=== PATIENT | female | born 1990 | race Caucasian/White ===

== ENCOUNTER 2018-11-04 14:26 | Inpatient (IN) | payer BC ==
[~2018-11-04] VITALS: Ht 170.2 cm; Wt 86.2 kg
--- NOTE | 2018-11-04 14:40 | NUR ---
MID UPPER ABD PAIN, + NAUSEA - DIARRHEA. AA/OX4, CHANGED INTO GOWN, ATTACHED TO THE MONITOR. IV LINE ESTABLISHED. NO DISTRESS NOTED.
[2018-11-04] MEDS ORDERED: PANTOPRAZOLE 40 MG VIAL ONE (14:57)
[2018-11-04] MEDS ORDERED: ONDANSETRON HCL/PF 4 MG/2 ML VIAL ONE (14:57)
[2018-11-04] MEDS ORDERED: MORPHINE SULFATE INJ 4 MG/ML DISP.SYRIN ONE ×2 (14:57→15:52)
[2018-11-04] MEDS ORDERED: PANTOPRAZOLE 40 MG VIAL IV ONE (15:00)
[2018-11-04] MEDS ORDERED: ONDANSETRON HCL/PF 4 MG/2 ML VIAL IVP ONE (15:00)
[2018-11-04] MEDS ORDERED: IV NS 0.9% 500 ML BAG IV ONE (15:00)
[2018-11-04 15:05] LABS: APPEARANCE,URINE Slightly Cloudy (CLEAR); BILIRUBIN,URINE Negative (NEGATIVE); BLOOD, URINE Negative Ery/uL (NEGATIVE); COLOR,URINE Yellow (YELLOW); KETONES,URINE Negative (NEGATIVE); LEUKOCYTE ESTERASE ,URINE Trace (NEGATIVE); NITRITE, URINE Negative (NEGATIVE); PROTEIN,URINE Negative (NEGATIVE); UGLUCOSE Negative (NEGATIVE); UROBILINOGEN,URINE 0.2 EU/dL (0.2)
[2018-11-04 15:08] LABS: BASOPHILS % (AUTO) 0.3 % (0.0-2.0); EOSINOPHILS % (AUTO) 0.8 % (0.0-6.0); HEMATOCRIT 40 % (33-45); HEMOGLOBIN 13.9 g/dL (11.5-14.8); LYMPHOCYTES # (AUTO) 1.2 /CMM (0.8-4.8); LYMPHOCYTES % (AUTO) 11.8 % (20.0-44.0); MEAN CORPUSCULAR HGB CONC 35 g/dl (31.0-36.0); MEAN CORPUSCULAR VOLUME 88 fL (82-100); MONOCYTES # (AUTO) 0.4 /CMM (0.1-1.30); MONOCYTES % (AUTO) 4.4 % (2.0-12.0); NEUTROPHILS # (AUTO) 8.4 /CMM (1.8-8.9); NEUTROPHILS % (AUTO) 82.7 % (43.0-81.0); PLATELET COUNT (AUTO) 309 /CMM (150-450); RED BLOOD CELL COUNT(AUTO) 4.54 MIL/uL (4.0-5.2); WHITE BLOOD COUNT (AUTO) 10.2 K/uL (4.3-11.0)
[2018-11-04 15:12] LABS: BACTERIA,URINE 2+ /HPF (None Seen); RBC,URINE 0-2 /HPF (0-2); SQUAMOUS EPITHELIAL CELL,UR Few /HPF (None Seen)
[2018-11-04 15:15] LABS: CALCIUM, SERUM 9.9 mg/dL (8.5-10.1); CARBON DIOXIDE 27 mmol/L (21-32); CHLORIDE 102 mmol/L (98-107); CREATININE 0.9 mg/dL (0.6-1.3); GLUCOSE 104 mg/dL (74-106); POTASSIUM 4.1 mmol/L (3.5-5.1); SODIUM SERUM 138 mmol/L (136-145); UREA NITROGEN, BLOOD 9 mg/dL (7-18)
--- NOTE | 2018-11-04 15:16 | NUR ---
PATIENT REFUSES MORPHINE AT THIS TIME, PER PATIENT PATIENT IS TOLERABLE. DR. RG MADE AWARE.
[2018-11-04] MEDS: MORPHINE SULFATE INJ 2 MG/ML DISP.SYRIN IV ONE ×2 (15:19→15:56)
[2018-11-04 15:22] LABS: ALANINE AMINOTRANSFERASE 31 U/L (12-78); ALBUMIN 4.3 g/dL (3.4-5.0); ALKALINE PHOSPHATASE 59 U/L (46-116); ASPARTATE AMINOTRANSFERASE 21 U/L (15-37); BILIRUBIN,DIRECT 0.2 mg/dL (0.0-0.2); BILIRUBIN,TOTAL 0.6 mg/dL (0.2-1.0); LIPASE 107 U/L (73-393); TOTAL PROTEIN, SERUM 7.5 g/dL (6.4-8.2)
[2018-11-04] MEDS ORDERED: IOHEXOL-300 100 ML VIAL IV ONE (15:54)
[2018-11-04] MEDS ORDERED: IV NS 0.9% 250 ML IV ONE (15:54)
[2018-11-04] MEDS ORDERED: CT SWABBABLE VALVE TRANS SET 1 EA INFUS.SET MC ONE (15:54)
--- NOTE | 2018-11-04 16:00 | NUR ---
PATIENT CHANGED HER MIND, REQUESTING FOR THE MORPHINE 4MG FOR PAIN.
--- NOTE | 2018-11-04 16:38 | NUR ---
CALLED DR MENG FOR A DR TO LEFT MESSAGE AND AWAITING HIS CALL BACK
[2018-11-04] MEDS ORDERED: PIPERACILLIN /TAZOBACTAM 3.375 G in IV D5W 50 ML IV ONE (17:00)
--- NOTE | 2018-11-04 17:03 | NUR ---
CALLED DR MENG AND LEFT A MESSAGE. AWAITING HIS CALL BACK
[2018-11-04] MEDS ORDERED: ESCI10TA PO (17:08)
[2018-11-04] MEDS ORDERED: MAGN400T26 PO (17:08)
[2018-11-04] MEDS ORDERED: FERR325T23 PO (17:08)
[2018-11-04] MEDS ORDERED: BUPR-51 PO (17:08)
--- NOTE | 2018-11-04 17:40 | NUR ---
CALLED [employer]. DIRECTOR PRISON DR HORNER.
--- NOTE | 2018-11-04 17:56 | NUR ---
CALLED HOUSE SUP FOR FOLLOW UP FOR MS BED
--- NOTE | 2018-11-04 18:02 | NUR ---
BED ASSIGN TO ROOM 307-1
--- NOTE | 2018-11-04 18:13 | NUR ---
REPORT GIVEN TO BELLE JOHNSON FOR SAUNDRA.
[2018-11-04 18:40] VITALS: BP 125/71
--- NOTE | 2018-11-04 18:48 | NUR ---
PATIENT MOVED TO ROOM 307-1, IN STABLE CONDITION. PATIENT KEPT NPO.
--- NOTE | 2018-11-04 18:54 | NUR ---
MS RN ADMITTING NOTES RECEIVED PATIENT FROM ER VIA [facility] ACCOMPANIED BY ER STAFF @9930. ALERT AND ORIENTED X 4; VERBALLY RESPONSIVE AND ABLE TO FOLLOW DIRECTIONS. BREATHING REGULAR AND UNLABORED. IV LINE LEFT AC G18 PATENT AND INTACT, FLUSHES WELL. VITAL SIGNS TAKEN. MD MADE AWARE OF ADMISSION. PLACED ON SEMI FOWLERS POSITION. NO COMPLAINTS OF PAIN/DISCOMFORT OF THE TIME. CALL LIGHT IN REACH. NEEDS ATTENDED. WILL ENDORSE TO NOC SHIFT FOR CONTINUITY OF CARE.
[2018-11-04] MEDS ORDERED: MAG HYDROX/AL HYDROX/SIMETH 30 ML UDC PO PRN (19:00)
[2018-11-04] MEDS ORDERED: ONDANSETRON HCL/PF 4 MG/2 ML VIAL IVP PRN (19:00)
[2018-11-04] MEDS ORDERED: MAGNESIUM HYDROXIDE 30 ML UDC PO PRN (19:00)
[2018-11-04] MEDS ORDERED: MORPHINE SULFATE INJ 2 MG/ML DISP.SYRIN IV PRN (19:00)
[2018-11-04] MEDS: IV NS 0.9% 1,000 ML IV PRN (19:00)
[2018-11-04] MEDS ORDERED: Z GUARD REMEDY 2 OZ OINT TP PRN (19:00)
--- NOTE | 2018-11-04 19:11 | NUR ---
MS RN NOTES SPOKE WITH WITH ORDERS TO PUT PATIENT ON CLEAR LIQUIDS DIET THEN NPO AFTER MIDNIGHT AND GET A CONSENT FOR LAPAROSCOPIC APPENDECTOMY POSSIBLE OPEN. ENDORSED ACCORDINGLY TO NOC SHIFT.
--- NOTE | 2018-11-04 19:50 | NUR ---
MS RN NOTES RECEIVED PATIENT LYING IN BED, AWAKE ALERT ORIENTED X4, NO SIGNS OF ACUTE RESPIRATORY DISTRESS NOTED, INITIAL PHYSICAL ASSESSMENT AND ADMISSION QUESTIONNAIRES INITIATED, STATED 2/10 LEVEL OF MID / LOWER ABDOMINAL PAIN, TOLERABLE AT THIS TIME, ALL NEEDS ANTICIPATED, CALL LIGHT WITH IN EASY REACH, SAFETY MEASURES IN PLACE, IV ACCESS ON HER LEFT AC INTACT AND PATENT, ORIENTED TO ROOM, UNIT AND THE USE OF CALL LIGHT, WILL CONTINUE TO MONITOR ACCORDINGLY.
[2018-11-04 20:00] VITALS: BP 129/65
[2018-11-04 20:09] VITALS: BP 129/65
--- NOTE | 2018-11-04 22:06 | NUR ---
RN NOTES PATIENT COMPLAINT OF SEVERE ABDOMINAL PAIN, 11/01, MORPHINE 2MG IV GIVEN PRN ORDER, WILL MONITOR.
[2018-11-04] MEDS: PIPERACILLIN /TAZOBACTAM 3.375 G in IV D5W 100 ML IV SCH (23:02)
--- NOTE | 2018-11-04 23:02 | NUR ---
RN NOTES PATIENT VOMITED CLEAR LIQUID SECRETION, ZOFRAN GIVEN ORDERED. WILL MONITOR.
[2018-11-05] MEDS ORDERED: PIPERACILLIN /TAZOBACTAM 3.375 G in IV D5W 50 ML IV SCH ×2
[2018-11-05] MEDS: PIPERACILLIN /TAZOBACTAM 3.375 G in IV D5W 100 ML IV SCH ×3 (06:58→23:17)
--- NOTE | 2018-11-05 07:00 | NUR ---
RN MS NOTE TAKE OUT WAITRESS REPORT AT BEDSIDE. PT ASLEEP, NO SIGN OF RESPIRATORY DISTRESS OR SOB NOTED. L AC #18 INTACT AND PATENT, NO SIGH OF INFILTRATION NOTED, ZOSYN RUNNING @25 ML/HR. NPO SIGN POSTED ON DOOR. PATIENT'S GIRLFRIEND AT BEDSIDE WELL. SAFETY PRECAUTION IN PLACE. BED LOCKED AND LOW POSITION, SIDE RAILS UP X2. WILL CONT' TO MONITOR.
--- NOTE | 2018-11-05 07:13 | NUR ---
RN NOTES ALL NEEDS ATTENDED AND MET, ABLE TO REST AND SLEPT AT INTERVALS, NO APPARENT DISTRESS NOTED, SAFETY MEASURES IN PLACE, WILL ENDORSE TO AM NURSE FOR CONTINUITY OF CARE.
--- NOTE | 2018-11-05 07:59 | NUR ---
MS RN NOTE PT WILL GO TO THE SURGERY AT 0900. URINE TEST ORDERED (STAT).
[2018-11-05 08:00] VITALS: BP 112/73
[2018-11-05 08:17] LABS: BASOPHILS % (AUTO) 0.5 % (0.0-2.0); EOSINOPHILS % (AUTO) 1.1 % (0.0-6.0); HEMATOCRIT 37 % (33-45); HEMOGLOBIN 12.6 g/dL (11.5-14.8); LYMPHOCYTES # (AUTO) 1.9 /CMM (0.8-4.8); LYMPHOCYTES % (AUTO) 24.9 % (20.0-44.0); MEAN CORPUSCULAR HGB CONC 35 g/dl (31.0-36.0); MEAN CORPUSCULAR VOLUME 89 fL (82-100); MONOCYTES # (AUTO) 0.5 /CMM (0.1-1.30); MONOCYTES % (AUTO) 6.9 % (2.0-12.0); NEUTROPHILS # (AUTO) 5.1 /CMM (1.8-8.9); NEUTROPHILS % (AUTO) 66.6 % (43.0-81.0); PLATELET COUNT (AUTO) 271 /CMM (150-450); RED BLOOD CELL COUNT(AUTO) 4.12 MIL/uL (4.0-5.2); WHITE BLOOD COUNT (AUTO) 7.6 K/uL (4.3-11.0)
[2018-11-05] MEDS ORDERED: ROCURONIUM BROMIDE 50 MG/5 ML ONE (08:32)
[2018-11-05] MEDS ORDERED: MIDAZOLAM HCL 2 MG/2ML VIAL ONE (08:32)
[2018-11-05 08:46] LABS: CALCIUM, SERUM 8.7 mg/dL (8.5-10.1); CREATININE 0.7 mg/dL (0.6-1.3); MAGNESIUM 1.9 mg/dL (1.8-2.4); PHOSPHORUS 4.2 mg/dL (2.5-4.9); POTASSIUM 4.2 mmol/L (3.5-5.1)
[2018-11-05 08:55] LABS: THYROID STIMULATING HORMONE 0.903 uIU/mL (0.358-3.74)
[2018-11-05] MEDS ORDERED: LIDOCAINE 1% INJ 50 ML MDV IJ ONE (08:56)
[2018-11-05] MEDS ORDERED: BUPIVACAINE MPF W/EPI 0.25% 30 ML VIAL ONE (08:56)
[2018-11-05] MEDS ORDERED: BACITRACIN ZINC OINT PACKET 1 EA PACKET TP ONE (09:33)
[2018-11-05] MEDS ORDERED: HYDROMORPHONE 1 MG/1 ML DISP.SYRIN ONE (09:49)
[2018-11-05] MEDS ORDERED: HYDROCODONE/APAP 10/325MG 1 EA TABLET PO PRN (10:30)
--- NOTE | 2018-11-05 10:30 | NUR ---
MS RN NOTE PT CAME BACK FROM SURGERY. A/OX4. VITAL SIGNS ARE STABLE. NO SIGN OF RESPIRATORY DISTRESS OR SOB AT THIS TIME. 3 SURGICAL SITE ARE INTACT. HOB ELEVATED. BED LOCKED AND LOW, SIDE RAILS UPX3. CALL LIGHT IN REACH. PATIENT'S GIRLFRIEND AT BEDSIDE. WILL CONT' TO MONITOR CLOSELY.
[2018-11-05] MEDS ORDERED: ONDANSETRON HCL/PF 4 MG/2 ML VIAL IV PRN (11:00)
[2018-11-05] MEDS: ONDANSETRON HCL IVP PRN ×2 (11:22→19:43)
[2018-11-05] MEDS: D5W IVP PRN ×2 (11:22→19:43)
[2018-11-05] MEDS ORDERED: KETOROLAC TROMETHAMINE INJ 30 MG/ML VIAL IM PRN (11:30)
[2018-11-05] MEDS: HYDROMORPHONE 1 MG/1 ML DISP.SYRIN IV PRN ×3 (12:19→19:43)
--- NOTE | 2018-11-05 14:00 | NUR ---
RN MS NOTE NO COMPLAIN OF PAIN OR NAUSEA AT THIS TIME. WILL CONT' TO MONITOR.
--- NOTE | 2018-11-05 14:50 | NUR ---
RN MS NOTE] PT WALKED IN THE HALLWAY FOR 5 MIN. STEADY GAIT, TOLERATING WELL. NO COMPLAIN OF PAIN.
[2018-11-05 15:53] VITALS: BP 108/60
[2018-11-05 16:00] VITALS: BP 108/60
[2018-11-05] MEDS ORDERED: KETOROLAC TROMETHAMINE INJ 30 MG/ML VIAL IV PRN (17:30)
--- NOTE | 2018-11-05 18:52 | NUR ---
RN MS CLOSING NOTE PT A/OX4. NO SIGN OF RESPIRATORY DISTRESS OR SOB NOTED THROUGH THE SHIFT. SHE IS RESTING COMFORTABLY AND HER GIRLFRIEND IS AT BEDSIDE. 3 DRESSING CHANGE INTACT. BED LOCKED, LOW, SIDE RAILS UPX3. CALL LIGHT IN REACH. NO COMPLAIN OF PAIN AT THIS TIME. ALL NEEDS ATTENDANT. WILL ENDORSE TO PM NURSE FOR SAUNDRA.
--- NOTE | 2018-11-05 19:15 | NUR ---
ms martina initial notes received report from am nurse at the bedside and pt seen sitting just ate some soup . she stated if she can have her nausea medication as well as her pain med before it getting worst, but now she still tolerating her pain . i told her i will check her list of her medication and we will give it as soon as possible. pt said "thank you ". she still on IVF NS at 75ml/hr infusing on her left AC patent and intact. she's on full liquid at this time. dressing on her abdomen still dry and intact. kept her comfortable at all times. call light at reach. will continue monitoring.
[2018-11-05] MEDS ORDERED: ONDANSETRON HCL/PF 4 MG/2 ML VIAL ONE (19:30)
[2018-11-05 20:00] VITALS: BP 109/72
[2018-11-05] MEDS: IV NS 0.9% 1,000 ML IV PRN (21:11)
[2018-11-05] MEDS: KETOROLAC TROMETHAMINE INJ 30 MG/ML VIAL IV SCH (22:24)
[2018-11-05] MEDS: ACETAMINOPHEN ES 500 MG TABLET PO SCH (22:27)
--- NOTE | 2018-11-06 | NUR ---
ms dishwasher busser notes pt sleeping comfortably in bed without any discomfort noted. IVF still infusing. will continue monitoring.
[2018-11-06] MEDS: ACETAMINOPHEN ES 500 MG TABLET PO SCH ×2 (03:00→08:28)
[2018-11-06] MEDS: KETOROLAC TROMETHAMINE INJ 30 MG/ML VIAL IV SCH (06:53)
[2018-11-06] MEDS: PIPERACILLIN /TAZOBACTAM 3.375 G in IV D5W 100 ML IV SCH (06:53)
--- NOTE | 2018-11-06 07:08 | NUR ---
ms exercise planner closing notes pt remain sleeping but arouses to touch, ivf still infusing and no signs of any discomfort or any N/V noted at this time. all due meds given and all needs met. kept her warm and comfortable at all times. will endorse to am nurse for continuity of care. place call light at reach.
--- NOTE | 2018-11-06 07:38 | NUR ---
MS/RN Patient received Patient received from cage operator. A/OX4, vital signs stable, pain level currently 4/10, denies any further nausea or vomiting. surgical incision clean and dry, dressing intact. Will continue to monitor and ensure safety.
[2018-11-06 07:53] VITALS: BP 119/68
[2018-11-06 08:00] VITALS: BP 119/68
--- NOTE | 2018-11-06 08:30 | NUR ---
MS/RN Diet changed Diet order changed to soft as tolerating full liquids at breakfast without any nausea or vomiting.
--- NOTE | 2018-11-06 08:47 | NUR ---
MS/RN Exit care Exit care prepared ready for discharge.
[2018-11-06 08:58] LABS: BASOPHILS % (AUTO) 0.5 % (0.0-2.0); HEMATOCRIT 33 % (33-45); HEMOGLOBIN 11.5 g/dL (11.5-14.8); LYMPHOCYTES # (AUTO) 2.7 /CMM (0.8-4.8); LYMPHOCYTES % (AUTO) 40.7 % (20.0-44.0); MEAN CORPUSCULAR HGB CONC 35 g/dl (31.0-36.0); MEAN CORPUSCULAR VOLUME 89 fL (82-100); MONOCYTES # (AUTO) 0.5 /CMM (0.1-1.30); MONOCYTES % (AUTO) 7.1 % (2.0-12.0); NEUTROPHILS # (AUTO) 3.3 /CMM (1.8-8.9); NEUTROPHILS % (AUTO) 50.7 % (43.0-81.0); PLATELET COUNT (AUTO) 227 /CMM (150-450); RED BLOOD CELL COUNT(AUTO) 3.73 MIL/uL (4.0-5.2); WHITE BLOOD COUNT (AUTO) 6.5 K/uL (4.3-11.0)
[2018-11-06 09:14] LABS: CALCIUM, SERUM 8.1 mg/dL (8.5-10.1); CREATININE 0.8 mg/dL (0.6-1.3); POTASSIUM 3.3 mmol/L (3.5-5.1)
--- NOTE | 2018-11-06 09:14 | NUR ---
MS/RN S/B Abdirahman Martinez ELEVATOR SERVICE TECHNICIAN Seen by ELEVATOR SERVICE TECHNICIAN - labs ordered, if within normal range, will be discharged home after lunch.
[2018-11-06] MEDS ORDERED: HYDR-4384 PO (09:45)
[2018-11-06 11:13] VITALS: BP 119/72
--- NOTE | 2018-11-06 11:14 | NUR ---
MS/early breastfeeding care specialist Wound care carried out, pictures taken and placed in chart.
--- NOTE | 2018-11-06 13:35 | NUR ---
MS/tufting machine fixer Patient discharged to home in stable condition. Exit care prepared and signed by patient. Education given on signs and symptoms of infection (fever, increase in pain and redness around incision site), patient informed to call Dr Albert or primary care doctor if any of these things occur. Patient stated understanding. Dressing already changed and pictures taken. Patient has been tolerating soft diet and drinking without any nausea this morning. Heplock removed along with name bands. All personal belongings accounted for on belongings list. Escorted to main lobby by PIG MACHINE SUPERVISOR, transport provided by patient's partner.
== END 2018-11-06 13:20 | disposition home or self-care (01) | DRG 342 ==
LOC: ER 14:28 → MED 18:20
PROVIDERS: ADMIT Nurse Practitioner Acute Care; ATTEND Nurse Practitioner Acute Care
PROC: 0DTJ4ZZ Resection of Appendix, Percutaneous Endoscopic Approach (ICD-10-PCS; principal; 2018-11-05)
DX: K35.80 Unspecified acute appendicitis (principal); N39.0 Urinary tract infection, site not specified; K21.9 Gastro-esophageal reflux disease without esophagitis; F32.9 Major depressive disorder, single episode, unspecified; F41.9 Anxiety disorder, unspecified; R16.0 Hepatomegaly, not elsewhere classified
CPT/HCPCS: 36415; 76705-TC; 80048-TC; 80061-TC; 80076-TC; 81000-TC; 83690-TC; 83735-TC; 84100-TC; 84443-TC; 84484-TC; 84703-TC; 85025-TC; 86850-TC; 87081-TC; 87086-TC; 88304-TC; A6403; C9113; G0378; J0690; J1100; J1170; J1885; J2250; J2270; J2405; J2543; J2704; J2710; J3490; J7030; J7040; J7050; J7060; Q9967

== ENCOUNTER 2018-11-10 13:35 | Outpatient (CLI) | payer BC ==
[~2018-11-10 13:35] MED LIST: BUPR-51 PO; ESCI10TA PO; FERR325T23 PO; HYDR-4384 PO; MAGN400T26 PO
[2018-11-10 13:49] VITALS: BP 123/75
== END 2018-11-10 23:59 | disposition home or self-care (01) ==
LOC: MSC 13:35
PROVIDERS: ATTEND Internal Medicine
DX: G89.18 Other acute postprocedural pain (principal); L76.32 Postprocedural hematoma of skin and subcutaneous tissue following other procedure; Z48.815 Encounter for surgical aftercare following surgery on the digestive system; Z90.89 Acquired absence of other organs; Z98.890 Other specified postprocedural states